=== PATIENT | male | born 1975 | race African-American/Black ===

== ENCOUNTER 2021-02-02 13:22 | Emergency (ER) | payer OTHER ==
[~2021-02-02] VITALS: Ht 182.9 cm; Wt 79.4 kg
[2021-02-02 13:46] LABS: ABSOLUTE NEUTROPHILS 7.6 thou/uL (1.4-8.2); BASOPHILS 0.7 % (0.0-2.0); EOSINOPHILS 0.2 % (0.0-3.0); HEMATOCRIT 42.1 % (42.0-52.0); HEMOGLOBIN 13.4 gm/dL (14.0-18.0); LYMPHOCYTES 11.2 % (24.0-44.0); MCH 25.4 pg (26.0-34.0); MCHC 31.9 g/dL (28.0-37.0); MCV 79.6 fL (80.0-100.0); MONOCYTES 10.2 % (1.0-8.0); PLATELET COUNT 304 thou/uL (150-400); POLYS 77.7 % (36.0-66.0); RBC 5.29 mil/uL (4.50-6.00); RDW 13.7 % (10.5-14.5); WBC 9.8 thou/uL (4.0-11.0)
[2021-02-02 13:55] LABS: ANION GAP 15 mmol/L (7-16); BUN 9 mg/dL (7-18); CHLORIDE 101 mmol/L (98-107); CO2 23 mmol/L (21-32); CREATININE 1.5 mg/dL (0.7-1.3); GLUCOSE 245 mg/dL (74-106); SODIUM 139 mmol/L (136-145)
[2021-02-02 13:57] LABS: POTASSIUM 2.9 mmol/L (3.5-5.1)
[2021-02-02 14:10] LABS: ALBUMIN 3.9 g/dL (3.4-5.0); SGOT 23 U/L (15-37); SGPT 23 U/L (16-63); TOTAL BILIRUBIN 0.4 mg/dL (0.2-1.0); TOTAL PROTEIN 7.5 g/dL (6.4-8.2); TROPONIN-I <0.06 ng/mL (<0.06)
[2021-02-02 14:25] LABS: SALICYLATE 6.5 mg/dL (2.8-20.0)
[2021-02-02 14:42] LABS: URINE BILIRUBIN NEGATIVE (Negative); URINE BLOOD NEGATIVE (Negative); URINE CLARITY CLEAR; URINE COLOR YELLOW; URINE GLUCOSE-RANDOM* 1+ (Negative); URINE KETONES NEGATIVE (Negative); URINE LEUKOCYTES-REFLEX NEGATIVE (Negative); URINE NITRITE-REFLEX NEGATIVE (Negative); URINE PROTEIN (DIPSTICK) NEGATIVE (Negative); URINE UROBILINOGEN 0.2 E.U./dl (0.2-1.0)
--- NOTE | 2021-02-02 14:47 | EKG ---
[address] [address] [place] [address] ELECTROCARDIOGRAM REPORT Name: LEONARDO BOSE Room #: REG RADHA Brody#: [id number] Admission: 02/02/21 Attend Phys: Discharge: Date of : 79 Report #: [id number] [facility] ED Test Date: 2021-02-02 Test Time: 13:49:57 Pat Name: LEONARDO BOSE Department: Room: Gender: M Home Care Attendant: leyda : 1975 Requested By: Jac Holder Order Number: [id number] MD: Ferdinand Barksdale Measurements Intervals [place] Rate: 99 P: 68 TX: 164 QRS: 52 QRSD: 89 T: -16 QT: 315 QTc: 405 Interpretive Statements Sinus tachycardia Ventricular premature complex LAE, consider biatrial enlargement RSR' in V1 or V2, probably normal variant Borderline T abnormalities, inferior leads No previous ECG available for comparison Electronically Signed On 02-02-2021 14:47:04 CDT by Ferdinand Barksdale [email or web address] <ELECTRONICALLY SIGNED> By: Ferdinand Barksdale MD, [facility] 02/02/21 1447 1349 1349 Ferdinand Barksdale MD, FACC /EPI
[2021-02-02 14:50] LABS: AMP/METHAMP Negative (Negative); BARBITURATES Negative (Negative); BENZODIAZEPINES Negative (Negative); COCAINE Negative (Negative); METHADONE Negative (Negative); OPIATES Negative (Negative); PCP POSITIVE (Negative)
[2021-02-02 18:06] LABS: CALCIUM 9.1 mg/dL (8.5-10.1); CREATININE 1.2 mg/dL (0.7-1.3); POTASSIUM 4.5 mmol/L (3.5-5.1)
[2021-02-02 18:40] VITALS: BP 162/78
== END 2021-02-02 18:41 | disposition home or self-care (01) ==
LOC: ER 13:22
PROVIDERS: Emergency Medicine
DX: T40.991A Poisoning by other psychodysleptics [hallucinogens], accidental (unintentional), initial encounter (principal); R45.1 Restlessness and agitation; E87.6 Hypokalemia; F12.229 Cannabis dependence with intoxication, unspecified; Y92.89 Other specified places as the place of occurrence of the external cause